=== PATIENT | male | born 1955 | race Caucasian/White ===

== ENCOUNTER 2023-11-01 08:52 | Outpatient (AMB) | payer BC, SELFPAY ==
[2023-11-01 08:55] VITALS: BP 122/78; PULSE 74; TEMP 36.6; O2SAT 99; BMI 27.9
--- NOTE | 2023-11-01 08:55 | MHC.OFFWIV ---
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 Pt believes he has was bitten by a Tick 2 weeks ago, on [place]. He noticed a small blister then removed the scab. He now noticed a small scab with Dark center and erythematous edges. Denies any other symptoms. Denies fevers or body chills. Reports applying cotton ball soaked in Peroxide to the Area. PFSH Social History Patient Tobacco Use Status: Never used Tobacco Review of Systems Const All systems reviewed & are unremarkable except as noted in HPI and below Physical Exam Vital Signs: Last Vital Signs Temp 97.8 F 11/01/23 08:55 Pulse 74 11/01/23 08:55 BP 122/78 11/01/23 08:55 Pulse Ox 99 11/01/23 08:55 Oxygen Delivery Method Room Air 11/01/23 08:55 BMI result Body Mass Index 27.9 Const General: comfortable and no acute distress Nutritional Appearance: well nourished Orientation/consciousness: patient oriented x3 Skin Other: Right Ankle, red rash with dark/black center and erthymatous edges. General skin exam: dry skin and erythema Neuro General: patient oriented x3, gait normal and moves all extremities Psych Speech and movement: Normal speech and movement present Assessment & Plan Assessment & Plan (1) Tick bite of ankle: Code(s): S90.569A - Insect bite (nonvenomous), unspecified ankle, initial encounter; W57.XXXA - Bitten or stung by nonvenomous insect and other nonvenomous arthropods, initial encounter Qualifiers: Encounter type: initial encounter Laterality: right Qualified Code(s): S90.561A - Insect bite (nonvenomous), right ankle, initial encounter; W57.XXXA - Bitten or stung by nonvenomous insect and other nonvenomous arthropods, initial encounter Plan: - No need for Abx for now - Rash healing well, not spreading - Pt Asymptomatic - Will order Lyme disease panel - May Apply Antihistamine lotion to the area. - RTC if not better. Orders: Orders Lyme IgG/IgM w/reflex to WB Today S90.561A - Insect bite (nonvenomous), right ankle, initial encounter, W57.XXXA - Bitten or stung by nonvenomous insect and other nonvenomous arthropods, initial encounter Coding Level of Care Code New Pt Level 3 (08018) Diagnoses Tick bite of right ankle, initial encounter S90.561A; W57.XXXA Encounter type: initial encounter Laterality: right Time Spent (min) 15
== END 2023-11-01 10:17 | disposition home or self-care (01) ==
PROVIDERS: Visit Provider Nurse Practitioner Family
DX: S90.561A Insect bite (nonvenomous), right ankle, initial encounter (principal); W57.XXXA Bitten or stung by nonvenomous insect and other nonvenomous arthropods, initial encounter
CPT/HCPCS: 99203

== ENCOUNTER 2023-11-01 09:53 | Outpatient (REF) | payer BC, SELFPAY ==
[2023-11-02 09:08] LABS: Lyme Abs Screen <0.90 index
== END 2023-11-01 09:54 | disposition home or self-care (01) ==
LOC: HO.HMGCLDS 09:53
PROVIDERS: Visit Provider Nurse Practitioner Family
DX: S90.561A Insect bite (nonvenomous), right ankle, initial encounter (principal); W57.XXXA Bitten or stung by nonvenomous insect and other nonvenomous arthropods, initial encounter; Y93.9 Activity, unspecified; Y92.9 Unspecified place or not applicable; Y99.9 Unspecified external cause status
CPT/HCPCS: 36415; 86617; 86618

== ENCOUNTER 2023-11-05 08:12 | Outpatient (AMB) | payer BC, SELFPAY ==
--- NOTE | 2023-11-05 08:23 | MHC.OFFWIV ---
Intake Vital Signs 11/05/23 08:25 Height 6 ft 2 in Weight 217 lb BMI 27.9 BP 122/76 Blood Pressure Location Rt brachial Position Sitting Pulse 80 Pulse Source Pulse Oximeter Temp 98.2 F Temp Source Oral Pulse Oximetry (%) 97 Intake Visit Reasons: EP s/p tick bite right knee pain Intake Note: pt is here for knee pain and ear ringing Patient Tobacco Use Status: Never used Tobacco Allergies No Known Allergies Allergy (Verified 11/05/23 08:26) Do you need a note to return to daycare/school/sports/work: Yes HPI HPI Comments History of Present Illness Details 68-year-old male complaining of right knee pain and ringing in his ears. He states he got bit by a tick a couple of weeks ago, he removed it the bite area scabbed over but since then he has had tinnitus and lightheadedness. He denies any fevers or changes, headache, neck stiffness, subsequent rash or body aches. He states he came to this clinic on October 31 and did a Lyme test but never received the results. [facility] Social History Patient Tobacco Use Status: Never used Tobacco Review of Systems Const All systems reviewed & are unremarkable except as noted in HPI and below Physical Exam Vital Signs: Last Vital Signs Temp 98.2 F 11/05/23 08:25 Pulse 80 11/05/23 08:25 BP 122/76 11/05/23 08:25 Pulse Ox 97 11/05/23 08:25 BMI result Body Mass Index 27.9 Results Reviewed Results Reviewed: Lyme testing was negative from October 31 Assessment & Plan Assessment & Plan (1) Tick bite of ankle: Code(s): S90.569A - Insect bite (nonvenomous), unspecified ankle, initial encounter; W57.XXXA - Bitten or stung by nonvenomous insect and other nonvenomous arthropods, initial encounter Qualifiers: Encounter type: subsequent encounter Laterality: right Qualified Code(s): S90.561D - Insect bite (nonvenomous), right ankle, subsequent encounter; W57.XXXD - Bitten or stung by nonvenomous insect and other nonvenomous arthropods, subsequent encounter Plan: As patient is symptomatic, we will treat for Lyme, advised to follow up with his PCP If no resolution in symptoms Plan see above Medications: New doxycycline hyclate 100 mg PO BID 14 tabs 0RF Coding Level of Care Code Est Pt Level 3 (16522) Diagnoses Tick bite of right ankle, subsequent encounter S90.561D; W57.XXXD Encounter type: subsequent encounter Laterality: right
[2023-11-05 08:25] VITALS: BP 122/76; PULSE 80; TEMP 36.8; O2SAT 97; BMI 27.9
== END 2023-11-05 09:08 | disposition home or self-care (01) ==
PROVIDERS: Visit Provider Physician Assistant
DX: S90.561A Insect bite (nonvenomous), right ankle, initial encounter (principal); W57.XXXD Bitten or stung by nonvenomous insect and other nonvenomous arthropods, subsequent encounter
CPT/HCPCS: 99213

== ENCOUNTER 2023-11-12 10:02 | Outpatient (AMB) | payer BC, SELFPAY ==
--- NOTE | 2023-11-12 11:16 | AM.OFFWIN_ITS ---
Intake Vital Signs 3 11/12/23 11:17 Height 6 ft 2 in Weight 220 lb BMI 28.2 BP 140/90 H Blood Pressure Location Rt brachial Position Sitting Pulse 59 Pulse Source Pulse Oximeter Pulse Oximetry (%) 96 Oxygen Delivery Method Room Air Intake Visit Reasons: EP rt leg pain/tick bite antibiotics not working Intake Note: pt is here for right leg pain due to tick bite, patient was here and was given antibiotics. Patient Tobacco Use Status: Never used Tobacco Allergies No Known Allergies Allergy (Verified 11/12/23 11:37) Medication List - Last Reconciled 11/12/23 by Casey Valerio MD doxycycline hyclate 100 mg PO BID Do you need a note to return to daycare/school/sports/work: No HPI EP rt leg pain/tick bite antibiotics not working 2 HPI0 Details Patient is a 68-year-old gentleman who is very active and right bicycle for many months daily Got bit by take earlier this month, patient was evaluated here Lyme titer was ordered which came back negative I think it was too early He was started on antibiotic at his 2nd visit because he was having knee pain on the same leg as tick bite Patient was treated with doxycycline for a week He is back he has finished his doxycycline Sunday of last week, his knee is still sore and is slightly swollen Patient is requesting 21 days of doxycycline treatment which I have sent for him Patient was instructed to follow up with the primary care . [facility] Social History Patient Tobacco Use Status: Never used Tobacco Review of Systems Const All systems reviewed & are unremarkable except as noted in HPI and below Physical Exam Vital Signs: Last Vital Signs Pulse 59 11/12/23 11:17 BP 140/90 H 11/12/23 11:17 Pulse Ox 96 11/12/23 11:17 Oxygen Delivery Method Room Air 11/12/23 11:17 BMI result Body Mass Index 28.2 Const General: no acute distress Orientation/consciousness: patient oriented x3 Eyes General: appearance normal, both eyes and all related structures Resp Effort & Inspection: normal respiratory effort and able to speak in complete sentences Neuro General: patient oriented x3 Extrem Knee images: 2 1. Slight swelling compared to left knee, there is no calf tenderness, there is no pain with ankle movement , dorsalis pedis pulse is 2 +right side. Knee range of motion is intact. Site of tick bite is healing on right ankle Psych Mental Status: mental status grossly normal Assessment & Plan Assessment & Plan (1) Tick bite of ankle: Code(s): S90.569A - Insect bite (nonvenomous), unspecified ankle, initial encounter; W57.XXXA - Bitten or stung by nonvenomous insect and other nonvenomous arthropods, initial encounter Qualifiers: Encounter type: subsequent encounter Laterality: right Qualified Code(s): S90.561D - Insect bite (nonvenomous), right ankle, subsequent encounter; W57.XXXD - Bitten or stung by nonvenomous insect and other nonvenomous arthropods, subsequent encounter (2) Swelling of knee joint, right: Code(s): M25.461 - Effusion, right knee (3) Knee pain, right: Code(s): M25.561 - Pain in right knee Qualifiers: Chronicity: acute Qualified Code(s): M25.561 - Pain in right knee Plan Patient is a 68-year-old gentleman who is very active and right bicycle for many months daily Got bit by take earlier this month, patient was evaluated here Lyme titer was ordered which came back negative I think it was too early He was started on antibiotic at his 2nd visit because he was having knee pain on the same leg as tick bite Patient was treated with doxycycline for a week He is back he has finished his doxycycline Sunday of last week, his knee is still sore and is slightly swollen Patient is requesting 21 days of doxycycline treatment which I have sent for him Patient was instructed to follow up with the primary care . Medications: Changed 2 From doxycycline hyclate 100 mg PO BID 14 tabs 0RF To doxycycline hyclate 100 mg PO BID 21 days 42 tabs 0RF Coding Level of Care Code Est Pt Level 4 (92651) Diagnoses Tick bite of right ankle, subsequent encounter S90.561D; W57.XXXD Encounter type: subsequent encounter Laterality: right Swelling of knee joint, right M25.461 Acute pain of right knee M25.561 Chronicity: acute
[2023-11-12 11:17] VITALS: BP 140/90; PULSE 59; O2SAT 96; BMI 28.2
== END 2023-11-12 12:37 | disposition home or self-care (01) ==
PROVIDERS: Visit Provider Internal Medicine
DX: S90.561D Insect bite (nonvenomous), right ankle, subsequent encounter (principal); W57.XXXD Bitten or stung by nonvenomous insect and other nonvenomous arthropods, subsequent encounter; M25.461 Effusion, right knee; M25.561 Pain in right knee
CPT/HCPCS: 99214